=== PATIENT | female | born 1940 | race Caucasian/White ===

== ENCOUNTER 2018-03-06 10:58 | Emergency (ER) | payer OTHER ==
[~2018-03-06] VITALS: Ht 152.4 cm; Wt 90.7 kg
[2018-03-06 11:05] VITALS: Ht 152.4 cm; Wt 90.7 kg
[2018-03-06 12:02] LABS: BASOPHIL % 0.5 % (0-2); PLATELET COUNT 268 x10^3mcL (130-400)
[2018-03-06 12:09] LABS: CALCIUM 7.9 mg/dL (8.5-10.1); CARBON DIOXIDE 37.1 mmol/L (21-32); CHLORIDE SERUM 102 mmol/L (98-107); CREATININE SERUM 2.6 mg/dL (0.6-1.0); GLUCOSE SERUM 134 mg/dL (74-106); POTASSIUM SERUM 3.8 mmol/L (3.5-5.1); SODIUM SERUM 138 mmol/L (136-145)
[2018-03-06 12:13] LABS: ALKALINE PHOSPHATASE 97 U/L (46-116); ALT/SGPT 11 U/L (14-59); AST/SGOT 24 U/L (15-37); BILIRUBIN TOTAL 0.6 mg/dL (0.20-1.00); RED CELL DISTRIBUTION WIDTH 18.8 % (11.5-14.5)
[2018-03-06 12:21] LABS: ALBUMIN 1.7 g/dL (3.4-5.0); TOTAL PROTEIN, SERUM 5.3 g/dL (6.4-8.2)
[2018-03-06 15:17] VITALS: BP 108/47
== END 2018-03-06 15:17 | disposition home or self-care (01) ==
LOC: ED 10:58
PROVIDERS: Emergency Medicine
DX: I95.9 Hypotension, unspecified (principal); N39.0 Urinary tract infection, site not specified; K94.03 Colostomy malfunction; I13.0 Hypertensive heart and chronic kidney disease with heart failure and stage 1 through stage 4 chronic kidney disease, or unspecified chronic kidney disease; E11.22 Type 2 diabetes mellitus with diabetic chronic kidney disease; N18.9 Chronic kidney disease, unspecified; I50.9 Heart failure, unspecified
CPT/HCPCS: 83880; J0696; Q0092

== ENCOUNTER 2018-03-22 09:49 | Emergency (ER) | payer MEDICARE, MEDICAID ==
[~2018-03-22] VITALS: Ht 162.6 cm; Wt 113.4 kg
[2018-03-22 09:55] VITALS: Ht 162.6 cm; Wt 113.4 kg
[2018-03-22 10:46] LABS: BASOPHIL % 0.4 % (0-2); PLATELET COUNT 379 x10^3mcL (130-400)
[2018-03-22 10:52] LABS: RED CELL DISTRIBUTION WIDTH 20.4 % (11.5-14.5); rbc morphology (normal/abnorm) ABNORMAL (NORMAL)
[2018-03-22 10:54] LABS: CALCIUM 8.5 mg/dL (8.5-10.1); CARBON DIOXIDE 32.2 mmol/L (21-32); CHLORIDE SERUM 104 mmol/L (98-107); CREATININE SERUM 3.1 mg/dL (0.6-1.0); GLUCOSE SERUM 140 mg/dL (74-106); POTASSIUM SERUM 4.5 mmol/L (3.5-5.1); SODIUM SERUM 139 mmol/L (136-145)
[2018-03-22 10:57] LABS: ALKALINE PHOSPHATASE 85 U/L (46-116); ALT/SGPT 10 U/L (14-59); AST/SGOT 15 U/L (15-37); BILIRUBIN TOTAL 0.39 mg/dL (0.20-1.00); LIPASE 56 IU/L (73-393)
[2018-03-22 11:02] LABS: ALBUMIN 1.6 g/dL (3.4-5.0); TOTAL PROTEIN, SERUM 5.4 g/dL (6.4-8.2)
[2018-03-22 13:17] LABS: UA SPECIFIC GRAVITY >=1.030 (1.005-1.035); microscopic required? YES; urine erythrocyte 1+ (NEGATIVE)
[2018-03-22 19:28] VITALS: BP 129/54
== END 2018-03-22 19:34 | disposition short-term general hospital (02) ==
LOC: ED 09:49
PROVIDERS: Emergency Medicine
DX: R41.82 Altered mental status, unspecified (principal); N12 Tubulo-interstitial nephritis, not specified as acute or chronic; I13.2 Hypertensive heart and chronic kidney disease with heart failure and with stage 5 chronic kidney disease, or end stage renal disease; E11.22 Type 2 diabetes mellitus with diabetic chronic kidney disease; N18.6 End stage renal disease; I50.9 Heart failure, unspecified; Z88.8 Allergy status to other drugs, medicaments and biological substances
CPT/HCPCS: 82962; 83880; J1580; J3370; J3490; J7050; Q0092